=== PATIENT | female | born 1990 | race Caucasian/White ===

== ENCOUNTER 2017-10-09 13:25 | Emergency (ER) | payer OTHER ==
[2017-10-09 13:38] VITALS: BP 128/80
--- NOTE | 2017-10-09 13:44 | ED Physician Documentation ---
PD HPI URI - Stated complaint Stated Complaint: CONGESTED - Chief complaint Chief Complaint: General - History obtained from History obtained from: Patient - History of Present Illness Timing - onset: How many days ago (3) Timing duration: Days (3) Timing details: Gradual onset, Still present Associated symptoms: Fever, Nasal congestion, Sinus pain, Productive cough Contributing factors: No: Sick contact, Travel, Immunocompromised Similar symptoms before: Has not had sx before Recently seen: Not recently seen Review of Systems Constitutional: reports: Fever, Chills Nose: reports: Rhinorrhea / runny nose, Congestion, Sinus pressure / pain Throat: denies: Sore throat Respiratory: reports: Cough GI: denies: Vomiting, Diarrhea Skin: denies: Rash PD PAST MEDICAL HISTORY - Past Medical History Respiratory: None Endocrine/Autoimmune: None - Past Surgical History Past Surgical History: No - Present Medications Home Medications: Ambulatory Orders Medication Instructions Recorded Confirmed Amoxicillin 500 mg PO TID #20 capsule 10/09/17 Cetirizine [ZyrTEC] 10 mg PO DAILY #15 tablet 10/09/17 Dexamethasone [Decadron] 4 mg PO DAILY #5 tablet 10/09/17 - Allergies Allergies/Adverse Reactions: Allergies Allergy/AdvReac Type Severity Reaction Status Date / Time No Known Drug Allergies Allergy Verified 10/09/17 13:38 - Social History Does the pt smoke?: No Smoking Status: Never smoker Does the pt drink ETOH?: No Does the pt have substance abuse?: No - Immunizations Immunizations are current?: Yes PD ED PE NORMAL - Vitals Vital signs reviewed: Yes - General General: Alert and oriented X 3, No acute distress, Well developed/nourished - HEENT HEENT: Ears normal, Moist mucous membranes, Pharynx benign - Neck Neck: Supple, no meningeal sign, No adenopathy - Cardiac Cardiac: RRR, No murmur - Respiratory Respiratory: Clear bilaterally - Abdomen Abdomen: Soft, Non tender - Back Back: No CVA TTP - Derm Derm: Normal color, Warm and dry, No rash - Neuro Neuro: Alert and oriented X 3, No motor deficit, Normal speech Results - Vitals Vitals: Oxygen O2 Source Room air PD MEDICAL DECISION MAKING - ED course Complexity details: considered differential, d/w patient Departure - Departure Disposition: 01 Home, Self Care Clinical Impression: Upper respiratory infection Qualifiers: URI type: unspecified URI Qualified Code(s): J06.9 - Acute upper respiratory infection, unspecified Condition: Stable Record reviewed to determine appropriate education?: Yes Instructions: ED Upper Resp Infec Abx Tx Follow-Up: [facility]UNAT[facility] [Provider Group] Prescriptions: Amoxicillin 500 mg PO TID #20 capsule Cetirizine [ZyrTEC] 10 mg PO DAILY #15 tablet Dexamethasone [Decadron] 4 mg PO DAILY #5 tablet Comments: Drink lots of fluids. Saline nasal spray for cleansing the passageways can be helpful. Use Decadron anti-inflammatory daily for 5 more days. Cetirizine antihistamine daily for the next week or 2. Most of the time these are viral illnesses and last about 4-7 days. Sometimes it is bacterial sinus infection instead. He can add amoxicillin either now or could see if you are improving in the next day or 2 and add the antibiotics if not improved in that interval. Off work as needed for 2-3 days due to illness. Forms: Activity restrictions Discharge Date/Time: 10/09/17 14:46
[2017-10-09] MEDS ORDERED: CETIRIZINE 10 MG TABLET PO STA (14:23)
[2017-10-09] MEDS ORDERED: DEXAMETHASONE 10 MG/ML VIAL PO STA (14:23)
[2017-10-09] MEDS ORDERED: ACETAMINOPHEN 325 MG TABLET PO STA (14:24)
[2017-10-09] MEDS ORDERED: ACETAMINOPHEN 325 MG TABLET PO ONE (14:33)
[2017-10-09] MEDS ORDERED: CETIRIZINE 10 MG TABLET ONE (14:34)
[2017-10-09] MEDS ORDERED: DEXAMETHASONE 10 MG/ML VIAL ONE (14:34)
== END 2017-10-09 14:46 | disposition home or self-care (01) ==
LOC: ED 13:25
DX: J06.9 Acute upper respiratory infection, unspecified (principal)
CPT/HCPCS: 99283; A9270

== ENCOUNTER 2018-03-02 15:05 | Emergency (ER) | payer OTHER ==
[2018-03-02 15:13] VITALS: BP 125/75
[2018-03-02] MEDS ORDERED: IBUPROFEN 800 MG TABLET PO STA (15:19)
--- NOTE | 2018-03-02 15:19 | ED Physician Documentation ---
PD HPI HEENT - Stated complaint Stated Complaint: SORE THROAT - Chief complaint Chief Complaint: Heent - History obtained from History obtained from: Patient - History of Present Illness Timing - onset: Other (2 days of sore throat without fevers or cough. It hurts to swallow. She has not taken anything for it.) Review of Systems Constitutional: denies: Fever, Chills Ears: denies: Loss of hearing, Ear pain Nose: denies: Rhinorrhea / runny nose Respiratory: denies: Cough PD PAST MEDICAL HISTORY - Past Medical History Past Medical History: No Respiratory: None Endocrine/Autoimmune: None - Past Surgical History Past Surgical History: No - Present Medications Home Medications: Ambulatory Orders Medication Instructions Recorded Confirmed No Known Home Medications [No 03/02/18 03/02/18 Known Home Medications] - Allergies Allergies/Adverse Reactions: Allergies Allergy/AdvReac Type Severity Reaction Status Date / Time No Known Drug Allergies Allergy Verified 03/02/18 15:13 - Social History Does the pt smoke?: No Smoking Status: Never smoker Does the pt drink ETOH?: No Does the pt have substance abuse?: No - Immunizations Immunizations are current?: Yes PD ED PE NORMAL - Vitals Vital signs reviewed: Yes - General General: Alert and oriented X 3, No acute distress - HEENT HEENT: PERRL, EOMI, Other (Red tonsils, but no exudates or adenopathy) - Derm Derm: No rash - Neuro Neuro: Alert and oriented X 3, Normal speech Results - Vitals Vitals: Vital Signs - 24 hr 03/02/18 15:07 Temperature 36.1 C L Heart Rate 104 H Respiratory 16 Rate Blood Pressure 125/75 O2 Saturation 98 Oxygen O2 Source Room air - Labs Labs: Laboratory Tests 03/02/18 15:20 Group A Strep Rapid Negative Departure - Departure Disposition: Home, Self Care Clinical Impression: Viral pharyngitis Condition: Good Record reviewed to determine appropriate education?: Yes Instructions: ED Pharyngitis Viral Report Pending Comments: Ibuprofen as needed for pain Return if worse See your PMD in 5-7 days if not better.
== END 2018-03-02 15:52 | disposition home or self-care (01) ==
LOC: ED 15:05
DX: J02.8 Acute pharyngitis due to other specified organisms (principal); B97.89 Other viral agents as the cause of diseases classified elsewhere
CPT/HCPCS: 87070; 87430; 99283; A9270